=== PATIENT | male | born 1980 | race Caucasian/White ===

== ENCOUNTER 2024-11-27 18:06 | Emergency (ER) | payer OTHER, SELFPAY ==
[2024-11-27 18:11] VITALS: BP 166/105
[2024-11-27 19:00] VITALS: BP 161/96
[2024-11-27 19:02] VITALS: BMI 27.1
[2024-11-27 20:00] VITALS: BP 164/101
[2024-11-27] MEDS: ATIVAN 2 MG IV (20:14)
[2024-11-27 20:16] LABS: % Basophils 0.6 % (0-2); % Eosinophils 0.1 % (0-6); % Immature Granulocytes 0.2 % (0-0.5); % Lymphocytes 13.3 % (20.5-51.1); % Neutrophils 79.8 % (42.2-75.2); Absolute Basophils 0.1 10^3/uL (0-0.2); Absolute Lymphocytes 1.6 10^3/uL (1.2-3.4); Absolute Monocytes 0.7 10^3/uL (0.1-0.6); Absolute Neutrophils 9.8 10^3/uL (1.4-6.5); Hematocrit 43.5 % (39.0-52.0); Hemoglobin 15.6 g/dL (13.0-18.0); Mean Corp Hgb Conc. 35.9 g/dL (33.0-37.0); Mean Corpuscular Hgb 33.9 pg (27.0-31.0); Mean Corpuscular Volume 94.6 fL (80.0-94.0); Mean Platelet Volume 8.9 fL (7.4-10.4); Nucleated Red Blood Cells % 0 % (-); Platelet Count 257 10^3/uL (130-400); Red Cell Dist. Width 11.9 % (11.5-14.5); White Blood Cell Count 12.2 10^3/uL (4.8-10.8)
[2024-11-27 20:26] LABS: APTT 27.8 Sec (23.4-35.0)
[2024-11-27 20:29] LABS: ALT (SGPT) 63 U/L (0-50); AST (SGOT) 70 U/L (17-59); Alkaline Phosphatase 63 U/L (38-126); Blood Urea Nitrogen 12 mg/dl (9-20); Calcium 9.8 mg/dl (8.4-10.2); Carbon Dioxide 26 mmol/L (22-30); Chloride 103 mmol/L (98-107); Estimated Creatinine Clearance > 125 ml/min; Glucose 102 mg/dl (70-99); Potassium 4.3 mmol/L (3.5-5.1); Sodium 137 mmol/L (135-145); Total Bilirubin 1.6 mg/dl (0.2-1.3); Total Protein 8.1 g/dl (6.3-8.2); eGFR > 60.00
[2024-11-27] MEDS: MULTIVITAMIN 1011 MG IV (20:46)
[2024-11-27] MEDS: MULTIVITAMIN 1011 ML IV (20:46)
--- NOTE | 2024-11-27 21:20 | ED.GENMED ---
History of Present Illness
General
Chief Complaint: Alcohol Problem
Source: patient and significant other
Exam Limitations: none
Time Seen by Provider: 11/27/24 18:59
Nursing documentation reviewed up to this point in time: agreed with
History of Present Illness
History of Present Illness:
Pleasant 44-year-old male presents to the emergency department seeking help for his alcohol use and cocaine abuse. He states that he drinks approximately half a gallon of liquor daily. He reports he used to drink beer but that flared up his gout.
Then he started drinking hard seltzers. He has now advanced to drinking hard alcohol. Patient does cocaine on a sporadic basis. He states that he last did an eightball 5 days ago. Patient has been through withdrawal in the past and states that
he feels that he is withdrawing at this time. Patient requests help from [facility].
Past History
Past History
ED Past Medical History: None
Social History
Living: with family
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
Review of Systems
Review of Systems
All Other Systems: ROS reviewed and negative except as documented in HPI and ROS
Constitutional: Reports sleep disturbance
EENT: Reports no symptoms
Respiratory: Reports no symptoms
Cardiac: Reports no symptoms
ABD/GI: Reports no symptoms
: Reports no symptoms
Musculoskeletal: Reports no symptoms
Skin: Reports no symptoms
Neurological: Reports no symptoms
Endocrine: Reports no symptoms
Hematologic/Lymphatic: Reports no symptoms
Psychiatric: Reports depression and anxiety; Denies suicidal
Phy Exam
General Physical Exam
General Presentation: well appearing and no apparent distress
General Skin: warm and dry
General Habitus: normal
General Mental: alert
General Hydration: appears well hydrated
ENT Exam
ENT Exam: EOMI, pharynx normal, neck supple and normocephalic
Eye Exam
Eye Exam: PERRL, cornea clear and conjunctiva normal
Cardiovascular Exam
Cardiovascular Exam: regular rate/rhythm, no edema, no murmur and normal peripheral pulses
Pulmonary Exam
Pulmonary Exam: lungs clear, no respiratory distress, no rales, no crackles, no rhonchi, no stridor, no wheezing and no cough
Gastrointestinal Exam
Gastrointestinal Exam: normal bowel sounds, non tender, soft, no organomegaly, no pulsatile mass and non distended
Neurological Exam
Neurological Exam: alert, oriented x3, no motor deficits and speech normal
Musculoskeletal Exam
Musculoskeletal Exam: full ROM and no edema
Skin Exam
Skin Exam: normal color, warm/dry, no rash and no petechia
Psychiatric Exam
Psychiatric Exam: normal mood/affect
Scores
Withdrawal Assessment of Alcohol
Withdrawal Assessment Completed?: Yes
Nausea and Vomiting: No nausea and no vomiting
Tactile Disturbances: Very mild itching, pins and needles, burning or numbness
Tremor: Not visible, but can be felt fingertip to fingertip
Auditory Disturbances: Not present
Paroxysmal Sweats: No sweat visible
Visual Disturbances: Not present
Anxiety: Moderately anxious, or guarded, so anxiety is inferred
Headache, Fullness in Head: Not present
Agitation: Normal activity
Orientation and clouding of sensorium: Oriented and can do serial additions
Total CIWA Score: 6
Alcohol Withdrawal Medication Recommendation: Equal to MSAS Score 0-4. Monitor & re-assess q2hrs, NO MEDICATION NEEDED
Course
Orders/Labs/Results
Orders:
Orders
11/27/24 20:00
0.9% Sodium Chloride 1000 ml [Nss] 1,000 ml Mvi, Adult [Multivitamin] 10 ml Thiamine Injection 100 mg IV 250 mls/hr
11/27/24 20:03
Urinalysis Reflex To Culture Urgent
Urine Drug Abuse Screen Urgent
11/27/24 20:05
Complete Blood Count/With Diff Urgent
Comprehensive Metabolic Panel Urgent
PTT Urgent
Comment: Obtain baseline before beginning heparin infusion if not already collected
11/27/24 20:11
Lorazepam [Ativan] 2 mg .ROUTE .STK-MED ONE
11/27/24 20:12
Lorazepam [Ativan] 2 mg IV NOW STA
Abnormal Lab Results
11/27/24
20:05
WBC 12.2 H 10^3/uL
(4.8-10.8)
RBC 4.60 L 10^6/uL
(4.70-6.10)
MCV 94.6 H fL
(80.0-94.0)
MCH 33.9 H pg
(27.0-31.0)
Absolute Neuts (auto) 9.8 H 10^3/uL
(1.4-6.5)
Absolute Monos (auto) 0.7 H 10^3/uL
(0.1-0.6)
Neutrophils % 79.8 H %
(42.2-75.2)
Lymphocytes % 13.3 L %
(20.5-51.1)
Glucose 102 H mg/dl
(70-99)
Total Bilirubin 1.6 H mg/dl
(0.2-1.3)
AST 70 H U/L
(17-59)
ALT 63 H U/L
(0-50)
11/27/24 20:05
11/27/24 20:05
Vital Signs
Initial and Last Documented VS:
Initial Vital Signs
Temp Pulse Resp BP Pulse Ox
98.5 F 79 18 166/105 98
11/27/24 18:11 11/27/24 18:11 11/27/24 18:11 11/27/24 18:11 11/27/24 18:11
Last Documented Vital Signs
Temp Pulse Resp BP Pulse Ox
98.5 F 85 15 156/101 97
11/27/24 18:11 11/27/24 22:45 11/27/24 22:45 11/27/24 22:33 11/27/24 22:45
*Critical Care Note
Total Time (30-74mins, 75-104mins- exclusive of procedures): Not Applicable
ED Attending Note
-
Portions of this chart may have been created with voice recognition software.� Occasional wrong word or��sound alike� substitutions may have occurred due to the inherent limitations of voice recognition software.
Discharge Plan
Departure
Patient Disposition: Acute Rehab Facility
Date of Disposition: 11/27/24
Time of Disposition: 23:04
Discharge Problem:
Alcohol use disorder, Cocaine abuse
Instructions: Drug Misuse and Addiction (DC), Alcohol Use Disorder (DC), BLOOD PRESSURE
Referrals:
Leonie Palmer CRNP [Family Provider] -
John Ackerman [Active] -
Activity Restrictions/Additional Instructions:
Thank You for choosing [facility].
It was a pleasure meeting you and taking part in your care. We hope for your continued healing and wellness.
Please read discharge instructions in their entirety. However, they are for general education and may not describe your exact diagnosis at discharge. Information on your ER visit and medical conditions were discussed with you along with appropriate
follow up information...
If indicated, please take your medications as instructed and indicated on discharge paperwork.
Please schedule a follow up appointment as directed. Call to schedule an appointment
Please return to the emergency department with ANY change in, persisting, or worsening of symptoms. If any of your symptoms do not improve, or persist, or become more severe within 6-12 hours, please return to the emergency department for further
care.
Please return to the emergency department if you develop a headache, neck pain/stiffness, fever greater than 100.4F, chest pain, shortness of breath, persistent nausea, vomiting, slurred speech, difficulty walking, numbness/tingling, weakness, signs
of infection or any other symptoms that are worrisome to you.
If you have any questions or concerns please do not hesitate to call the Hospital at .
Interventions
Interventions:
*Risk Screen - Suicide Last Done: 11/27/24 18:11
*General Assessment Last Done: 11/27/24 18:11
*Neglect/Abuse Screening Last Done: 11/27/24 18:11
*ED- Fall Risk Assessment Last Done: 11/27/24 19:02
*ED COVID-19 Vaccine History Last Done: 11/27/24 19:02
ED- Neurological Assessment Last Done: 11/27/24 19:02
ED-Psychological Assessment Last Done: 11/27/24 19:02
Discharge Date and Time
Print Language: ITALIAN
[2024-11-27 22:33] VITALS: BP 156/101
[2024-11-27 22:50] VITALS: BP 156/104
[2024-11-27 23:00] VITALS: BP 160/106
== END 2024-11-27 23:20 ==
LOC: EMR 18:06
PROVIDERS: EMERGENCY PHYSICIAN Student in an Organized Health Care Education/Training Program; FAMILY PHYSICIAN Nurse Practitioner Family
DX: F10.10 Alcohol abuse, uncomplicated (principal); F14.10 Cocaine abuse, uncomplicated; M10.9 Gout, unspecified; F32.A Depression, unspecified; F41.9 Anxiety disorder, unspecified; F17.200 Nicotine dependence, unspecified, uncomplicated
CPT/HCPCS: 99285; 96365; 96366; 80053; 85025; 85730